=== PATIENT | female | born 1955 | race Caucasian/White ===

== ENCOUNTER 2016-12-28 11:10 | Emergency (ER) | payer BC ==
[2016-12-28 12:26] VITALS: BP 118/63
--- NOTE | 2016-12-28 13:13 | ED ---
Respiratory - HPI Summary HPI Summary: PATIENT IS AN OTHERWISE HEALTHY 61YO M WHO PRESENTS TO WITH CC OF CONGESTION , SINUS PRESSURE, TEETH PAIN, MELTON, COUGH WITHOUT PRODUCTION, SOB AND LOW GRADE FEVERS X 4 WEEKS. SHE STATES THE COUGH HAS IMPROVED, BUT THE SINUS PRESSURE IS WORSE. SHE HAS NEVER HAD PNA OR SINUS INFECTIONS. SHE HAS TRIED OTC SINUS AND ALLERGY MEDICATION WITH SLIGHT IMPROVEMENT. SHE DENIES ALLERGIES. SHE HAS NEVER HAD ANYTHING LIKE THIS BEFORE. DENIES SICK CONTACTS. DENIES FAMILY HISTORY OF RESP ILLNESS. - History of Current Complaint Chief Complaint: UCGeneralIllness Stated Complaint: SINUS Time Seen by Provider: 12/28/16 13:00 Hx Obtained From: Patient Onset/Duration: Gradual Onset Timing: Constant Initial Severity: Moderate Current Severity: Moderate Pain Intensity: 5 Character: Cough (Nonproductive), Dyspnea at Rest, Dyspnea on Exertion Sputum Amount: Scant Sputum Color: White Aggravating Factor(s): URI, Deep Breaths Alleviating Factor(s): OTC Medications, Upright Position, Rest Associated Signs and Symptoms: SOB, URI, Sinus Infection, Chest Pain with Cough , Nasal Congestion, Sinus Discomfort - Risk Factors Status Asthmaticus Risk Factors: Negative Pulmonary Embolism Risk Factors: Negative Cardiac Risk Factors: Negative Pseudomonas Risk Factors: Negative Tuberculosis Risk Factors: Negative - Allergy/Home Medications Allergies/Adverse Reactions: Allergies Allergy/AdvReac Type Severity Reaction Status Date / Time Sulfa Antibiotics Allergy Hives Verified 12/28/16 12:26 Home Medications: Home Medications Chlorpheniramine & Phenylephri [Sinus & Allergy PE Maximu] 1 tab PO DAILY PRN [History Confirmed 12/28/16] Probiotic Product [Probiotic Daily] 1 cap PO DAILY 12/28/16 [History Confirmed 12/28/16] aMILoride TAB* [Midamor TAB*] 5 mg PO DAILY 12/28/16 [History Confirmed 12/28/16 ] PMH/Surg Hx/FS Hx/Imm Hx Previously Healthy: Yes - Surgical History Surgery Procedure, Year, and Place: LEFT LEG BONE GRAFT. RIGHT TIBIAL FX. APPY. NEPHROSTOMY. LITHTRIPSY - Immunization History Hx Pertussis Vaccination: No Immunizations Up to Date: Unable to Obtain/Confirm Infectious Disease History: No Infectious Disease History: Denies: Traveled Outside the [place] in Last 30 Days - Social History Occupation: Employed Full-time Lives: With Family Alcohol Use: Rare Substance Use Type: Reports: None Smoking Status (MU): Never Smoked Tobacco Review of Systems Constitutional: Negative Eyes: Negative Positive: Sore Throat, Ear Ache, Nasal Discharge Cardiovascular: Negative Positive: Shortness Of Breath, Cough Positive: no symptoms reported, see HPI Musculoskeletal: Negative Skin: Negative Positive: Headache Psychological: Normal All Other Systems Reviewed And Are Negative: Yes Physical Exam Triage Information Reviewed: Yes Vital Signs On Initial Exam: Initial Vitals Temp Pulse Resp BP Pulse Ox 99.4 F 77 12 118/63 99 12/28/16 12:18 12/28/16 12:18 12/28/16 12:18 12/28/16 12:18 12/28/16 12:18 Vital Signs Reviewed: Yes Appearance: Positive: Well-Appearing, No Pain Distress, Well-Nourished Skin: Positive: Warm, Skin Color Reflects Adequate Perfusion Head/Face: Positive: Normal Head/Face Inspection Eyes: Positive: Normal ENT: Positive: Pharynx normal, Nasal congestion, Nasal drainage Neck: Positive: Supple, Nontender, No Lymphadenopathy Respiratory/Lung Sounds: Positive: Clear to Auscultation, Breath Sounds Present Cardiovascular: Positive: Normal, RRR Musculoskeletal: Positive: Normal, Strength/ROM Intact Neurological: Positive: Normal, Sensory/Motor Intact, Alert, Oriented to Person Place, Time Psychiatric: Positive: Normal AVPU Assessment: Alert Diagnostics - Vital Signs Vital Signs Temp Pulse Resp BP Pulse Ox 12/28/16 12:18 99.4 F 77 12 118/63 99 - Laboratory Lab Statement: Any lab studies that have been ordered have been reviewed, and results considered in the medical decision making process. Disposition - Course Course Of Treatment: PATIENT SENT TO [facility]. SHOWS COPD, BUT MOST LIKELY ACUTE. THIS WAS EXPLAINED TO PATIENT AND SHE AGREES. NON-SMOKER. ENCOURAGED PREDNISONE , AND SUDAFED AND AUGMENTIN. WILL ADD ON ANTIBIOTIC FOR SINUS PRESSURE AND SINUS INFECTION. - Differential Dx - Cardiopulmonary Differential Diagnoses - Cardiopulmonary: Airway Obstruction, Lower Resp Infection, Sinusitis - Diagnoses Provider Diagnoses: Sinusitis Discharge - Discharge Plan Condition: Stable Disposition: HOME Prescriptions: Amoxicillin/Clavulanate TAB* [Augmentin TAB 875*] 875 mg PO BID #14 tab Pseudoephedrine HCl [Sudafed 24 Hour] 240 mg PO DAILY #15 tab predniSONE TAB* [Deltasone TAB*] 50 mg PO DAILY #5 tab MDD 1 Patient Education Materials: Sinusitis (ED) Referrals: Leonora Douglas MD [Primary Care Provider] - Additional Instructions: Humidifier in the home will help. Tylenol for discomfort. Take all medications as directed. Symptoms should resolve in 1-3 weeks. If symptoms become worse, please come back to UC or go to the ED. PREDNISONE PRESCRIBED SUDAFED DAILY AUGMENTIN PRESCRIBED
--- NOTE | 2016-12-28 13:26 | RAD ---
INDICATION: 4 weeks cough, congestion, fever. History of congenital rib deformity. COMPARISON: No relevant prior exams available on the [facility] PACS for comparison. TECHNIQUE: Dual energy PA and routine lateral views of the chest were obtained. REPORT: Elevated lung volumes. No pulmonary consolidation, focal pulmonary lesion, pleural effusion, pneumothorax. The heart, pulmonary vasculature, and mediastinal contours are unremarkable. No fracture or suspicious thoracic osseous lesion evident. IMPRESSION: Stigmata of obstructive lung disease. No acute pulmonary or cardiac process evident.
== END 2016-12-28 13:46 | disposition home or self-care (01) ==
LOC: UCCORT 11:10
DX: J32.9 Chronic sinusitis, unspecified (principal); J44.9 Chronic obstructive pulmonary disease, unspecified; Z88.2 Allergy status to sulfonamides
CPT/HCPCS: 71020; 99202; G0463